=== PATIENT | female | born 1990 | race American Indian/Alaskan Native ===

== ENCOUNTER 2021-02-17 17:17 | Emergency (ER) | payer OTHER ==
--- NOTE | 2021-02-17 17:42 | EDM.PDOC ---
ED HPI GENERAL MEDICAL PROBLEM <Delmer Miller - Last Filed: 02/17/21 19:32> - General Source of Information: Reports: Patient History Limitations: Reports: No Limitations Abdominal Pain Score (Numeric/FACES): 9 <Tera Garcia - Last Filed: 02/18/21 06:37> - General Chief Complaint: CHIEF OF INTERNAL MEDICINE Problem Stated Complaint: HEAVY BLEEDING Time Seen by Provider: 02/17/21 17:19 - History of Present Illness INITIAL COMMENTS - FREE TEXT/NARRATIVE: Patient is a 30-year-old female who presents today for vaginal bleeding. Patient states that she took a test about 5 days ago that was positive her last period was 4 weeks ago. Patient states she has been having some heavy bleeding she has been using a tampon and has to change it out every 30 minutes. States she does not feel tired weak but does have some more abdominal cramping she is having some blood clots as well she denies any other complaints. (Tera Garcia) - Related Data Allergies Allergy/AdvReac Type Severity Reaction Status Date / Time No Known Allergies Allergy Verified 02/17/21 17:30 Home Meds: Home Meds . [No Known Home Meds] 02/17/21 [History] Past Medical History Cardiovascular History: Reports: Heart Murmur Gastrointestinal History: Reports: GERD CHIEF OF INTERNAL MEDICINE History: Reports: Polycystic Ovaries Psychiatric History: Reports: Anxiety, Depression - Past Surgical History Other Musculoskeletal Surgeries/Procedures:: ankle and leg surgery <Tera Garcia - Last Filed: 02/18/21 06:37> Social & Family History - Family History Family Medical History: No Pertinent Family History HEENT: Reports: Glaucoma Cardiac: Reports: Stent Respiratory: Reports: Asthma, Sleep Apnea GI: Reports: Diverticulitis : Reports: Renal Disease/Insufficiency OBGYN: Reports: Endometriosis, Fibroids, Musculoskeletal: Reports: Osteoporosis Neurological: Reports: Dementia Psychiatric: Reports: ADHD Endocrine/Metabolic: Reports: Osteoporosis Oncologic: Reports: Prostate - Caffeine Use Caffeine Use: Reports: Coffee, Soda, Tea <Tera Garcia - Last Filed: 02/18/21 06:37> ED ROS GENERAL - Review of Systems Review Of Systems: See Below Constitutional: Reports: No Symptoms HEENT: Reports: No Symptoms Respiratory: Reports: No Symptoms Cardiovascular: Reports: No Symptoms Endocrine: Reports: No Symptoms GI/Abdominal: Reports: No Symptoms : Reports: Irregular Menses Musculoskeletal: Reports: No Symptoms Skin: Reports: No Symptoms Neurological: Reports: No Symptoms Psychiatric: Reports: No Symptoms Hematologic/Lymphatic: Reports: No Symptoms Immunologic: Reports: No Symptoms <Tera Garcia - Last Filed: 02/18/21 06:37> ED EXAM - Physical Exam Exam: See Below Exam Limited By: No Limitations General Appearance: Alert, WD/WN, No Apparent Distress Head: Atraumatic Respiratory/Chest: No Respiratory Distress, Lungs Clear, Normal Breath Sounds Cardiovascular: Normal Peripheral Pulses, Regular Rate, Rhythm, No Edema GI/Abdominal Exam: Normal Bowel Sounds, Soft, Non-Tender Neurological: Alert, Oriented, Normal Cognition, Normal Gait <Tera Garcia - Last Filed: 02/18/21 06:37> Course <MillerDelmer - Last Filed: 02/17/21 19:32> - Vital Signs Last Recorded V/S: Last Vital Signs Temp 97.7 F 02/17/21 17:28 Pulse 80 02/17/21 19:36 Resp 18 02/17/21 19:36 BP 156/99 H 02/17/21 19:36 Pulse Ox 99 02/17/21 19:36 - Orders/Labs/Meds Labs: Laboratory Tests 02/17/21 02/17/21 02/17/21 Range/Units 17:27 17:42 17:42 WBC 10.96 (4.0-11.0) K/uL RBC 4.88 (4.30-5.90) M/uL Hgb 13.5 (12.0-16.0) g/dL Hct 40.1 (36.0-46.0) % MCV 82.2 (80.0-98.0) fL MCH 27.7 (27.0-32.0) pg MCHC 33.7 (31.0-37.0) g/dL RDW Std Deviation 44.3 (28.0-62.0) fl RDW Coeff of Kay 15 (11.0-15.0) % Plt Count 384 (150-400) K/uL MPV 9.20 (7.40-12.00) fL Neut % (Auto) 61.8 (48.0-80.0) % Lymph % (Auto) 29.9 (16.0-40.0) % Plumas % (Auto) 5.4 (0.0-15.0) % Eos % (Auto) 2.7 (0.0-7.0) % Baso % (Auto) 0.2 (0.0-1.5) % Neut # (Auto) 6.8 H (1.4-5.7) K/uL Lymph # (Auto) 3.3 H (0.6-2.4) K/uL Plumas # (Auto) 0.6 (0.0-0.8) K/uL Eos # (Auto) 0.3 (0.0-0.7) K/uL Baso # (Auto) 0.0 (0.0-0.1) K/uL Nucleated RBC % 0.0 /100WBC Nucleated RBCs # 0 K/uL INR 0.90 APTT 28.1 (18.6-31.3) SEC Sodium (136-145) mmol/L Potassium (3.5-5.1) mmol/L Chloride (98-107) mmol/L Carbon Dioxide (21.0-32.0) mmol/L BUN (7.0-18.0) mg/dL Creatinine (0.6-1.0) mg/dL Est Cr Clr Drug Dosing mL/min Estimated GFR (MDRD) ml/min Glucose (74-106) mg/dL Calcium (8.5-10.1) mg/dL Total Bilirubin (0.2-1.0) mg/dL AST (15-37) IU/L ALT (14-63) IU/L Alkaline Phosphatase (46-116) U/L Total Protein (6.4-8.2) g/dL Albumin (3.4-5.0) g/dL Globulin (2.6-4.0) g/dL Albumin/Globulin Ratio (0.9-1.6) HCG, Quant mIU/mL Urine Color YELLOW Urine Appearance SLT CLOUDY Urine pH 6.0 (5.0-8.0) Ur Specific Cornelius >= 1.030 (1.001-1.035) Urine Protein TRACE H (NEGATIVE) mg/dL Urine Glucose (UA) NEGATIVE (NEGATIVE) mg/dL Urine Ketones TRACE H (NEGATIVE) mg/dL Urine Occult Blood LARGE H (NEGATIVE) Urine Nitrite NEGATIVE (NEGATIVE) Urine Bilirubin NEGATIVE (NEGATIVE) Urine Urobilinogen 0.2 (<2.0) EU/dL Ur Leukocyte Esterase NEGATIVE (NEGATIVE) Urine RBC 35-40 (0-2/HPF) Urine WBC 0-2 (0-5/HPF) Ur Epithelial Cells FEW (NONE-FEW) Urine Bacteria RARE (NEGATIVE) Urine Mucus LIGHT (NONE-MOD) Blood Type 02/17/21 02/17/21 Range/Units 17:42 17:42 WBC (4.0-11.0) K/uL RBC (4.30-5.90) M/uL Hgb (12.0-16.0) g/dL Hct (36.0-46.0) % MCV (80.0-98.0) fL MCH (27.0-32.0) pg MCHC (31.0-37.0) g/dL RDW Std Deviation (28.0-62.0) fl RDW Coeff of Kay (11.0-15.0) % Plt Count (150-400) K/uL MPV (7.40-12.00) fL Neut % (Auto) (48.0-80.0) % Lymph % (Auto) (16.0-40.0) % Plumas % (Auto) (0.0-15.0) % Eos % (Auto) (0.0-7.0) % Baso % (Auto) (0.0-1.5) % Neut # (Auto) (1.4-5.7) K/uL Lymph # (Auto) (0.6-2.4) K/uL Plumas # (Auto) (0.0-0.8) K/uL Eos # (Auto) (0.0-0.7) K/uL Baso # (Auto) (0.0-0.1) K/uL Nucleated RBC % /100WBC Nucleated RBCs # K/uL INR APTT (18.6-31.3) SEC Sodium 140 (136-145) mmol/L Potassium 3.6 (3.5-5.1) mmol/L Chloride 106 (98-107) mmol/L Carbon Dioxide 21.8 (21.0-32.0) mmol/L BUN 13 (7.0-18.0) mg/dL Creatinine 0.7 (0.6-1.0) mg/dL Est Cr Clr Drug Dosing 102.40 mL/min Estimated GFR (MDRD) > 60.0 ml/min Glucose 101 (74-106) mg/dL Calcium 8.8 (8.5-10.1) mg/dL Total Bilirubin 0.4 (0.2-1.0) mg/dL AST 15 (15-37) IU/L ALT 25 (14-63) IU/L Alkaline Phosphatase 84 (46-116) U/L Total Protein 8.6 H (6.4-8.2) g/dL Albumin 3.5 (3.4-5.0) g/dL Globulin 5.1 H (2.6-4.0) g/dL Albumin/Globulin Ratio 0.7 L (0.9-1.6) HCG, Quant < 1.0 mIU/mL Urine Color Urine Appearance Urine pH (5.0-8.0) Ur Specific Cornelius (1.001-1.035) Urine Protein (NEGATIVE) mg/dL Urine Glucose (UA) (NEGATIVE) mg/dL Urine Ketones (NEGATIVE) mg/dL Urine Occult Blood (NEGATIVE) Urine Nitrite (NEGATIVE) Urine Bilirubin (NEGATIVE) Urine Urobilinogen (<2.0) EU/dL Ur Leukocyte Esterase (NEGATIVE) Urine RBC (0-2/HPF) Urine WBC (0-5/HPF) Ur Epithelial Cells (NONE-FEW) Urine Bacteria (NEGATIVE) Urine Mucus (NONE-MOD) Blood Type O POSITIVE Meds: Medications Discontinued Medications Generic Name Dose Route Start Last Admin Trade Name Gregor PRN Reason Stop Dose Admin Ketorolac Tromethamine 30 mg 02/17/21 18:57 02/17/21 19:12 Ketorolac 30 Mg/Ml Sdv IVPUSH 02/17/21 18:58 Not Given ONETIME ONE Ketorolac Tromethamine 30 mg 02/17/21 19:02 02/17/21 19:08 Ketorolac 30 Mg/Ml Sdv IM 02/17/21 19:03 30 mg ONETIME ONE Administration - Re-Assessments/Exams Free Text/Narrative Re-Assessment/Exam: 02/17/21 19:01 I accepted responsibility for this patient at the end of my partner's shift. Ultrasound pending and likely will be discharged to follow up with primary care or [facility]. 02/17/21 19:34 Ultrasound is negative. Ovaries not well seen. Vital signs stable. hCG negative. Blood type O+. Nothing further needs to be done at this point in patient's discharge. (Delmer Miller) Departure - Departure Time of Disposition: 19:32 Condition: Good <Delmer Miller - Last Filed: 02/17/21 19:32> <Tera Garcia - Last Filed: 02/18/21 06:37> - Departure Disposition: Home, Self-Care 01 Clinical Impression: Menorrhagia - Discharge Information Instructions: Menorrhagia Referrals: PCP,None [Primary Care Provider] - Forms: ED Department Discharge Additional Instructions: He may have had a very early miscarriage. Your test is now negative. Your blood type is O+ so nothing further needs to be done to protect future pregnancies. [facility] [address] [place] [address] [facility] [address] [place] [address] The following information is given to patients seen in the emergency department who are being discharged to home. This information is to outline your options for follow-up care. We provide all patients seen in our emergency department with a follow-up referral. The need for follow-up, as well as the timing and circumstances, are variable depending upon the specifics of your emergency department visit. If you don't have a primary care physician on staff, we will provide you with a referral. We always advise you to contact your personal physician following an emergency department visit to inform them of the circumstance of the visit and for follow-up with them and/or the need for any referrals to a consulting specialist. The emergency department will also refer you to a specialist when appropriate. This referral assures that you have the opportunity for follow-up care with a specialist. All of these measure are taken in an effort to provide you with opt imal care, which includes your follow-up. Under all circumstances we always encourage you to contact your private physician who remains a resource for coordinating your care. When calling for follow-up care, please make the office aware that this follow-up is from your recent emergency room visit. If for any reason you are refused follow-up, please contact the [facility] Emergency Department at and asked to speak to the emergency department charge nurse. Sepsis Event Note (ED) - Evaluation Sepsis Screening Result: No Definite Risk <Tera Garcia - Last Filed: 02/18/21 06:37> - Focused Exam Vital Signs: Vital Signs Pulse Resp BP Pulse Ox 02/17/21 19:36 80 18 156/99 H 99 <Tera Garcia - Last Filed: 02/18/21 06:37> - Assessment/Plan Plan: Patient is a 30-year-old female presents today for vaginal bleeding. Patient had a positive test a few days ago. Unclear if patient is now or how far along she is we will obtain urine test and ultrasound if positive and reassess. (Tera Garcia)
[2021-02-17 18:27] LABS: BLOOD UREA NITROGEN,BUN 13 mg/dL (7.0-18.0); CARBON DIOXIDE,CO2 21.8 mmol/L (21.0-32.0); CHLORIDE,CL 106 mmol/L (98-107); GLUCOSE RANDOM 101 mg/dL (74-106); POTASSIUM,K 3.6 mmol/L (3.5-5.1); SODIUM,NA 140 mmol/L (136-145)
[2021-02-17] MEDS ORDERED: Ketorolac 30 MG/ML SDV IVPUSH ONE (18:57)
[2021-02-17] MEDS ORDERED: Ketorolac 30 MG/ML SDV IM ONE (19:02)
--- NOTE | 2021-02-17 19:26 | US ---
INDICATION: , bleeding TECHNIQUE: Ultrasound pelvis transvaginal for better assessment or to better visualize the endometrium. Real-time sonographic images with spectral and color Doppler imaging of the ovaries were obtained. COMPARISON: None FINDINGS: The uterus is anteverted with endometrial thickness of 20 millimeters. Echotexture of the endometrial cavity is heterogeneous without a discrete gestational sac. Neither ovary seen. No adnexal mass no free fluid. IMPRESSION: Heterogeneous echotexture of the endometrial cavity without discrete gestational sac. This is considered a of uncertain location. Differential diagnosis includes normal early and miscarriage. Ectopic not excluded although none is seen on this exam. Correlation with serial quantitative beta HCG and follow-up ultrasound in 10-14 days suggested. Dictated by Dmitry Hernandez MD @ 02/17/2021 7:25:27 PM (Electronically Signed)
[2021-02-17 19:36] VITALS: BP 156/99; PULSE 80
== END 2021-02-17 19:40 | disposition home or self-care (01) ==
LOC: MW.ED 17:17
DX: N92.0 Excessive and frequent menstruation with regular cycle (principal)
CPT/HCPCS: 36415; 76817; 80053; 81001; 84702; 85025; 85610; 85730; 86900; 86901; 96372; 99284; J1885

== ENCOUNTER 2021-02-20 10:59 | Emergency (ER) | payer OTHER ==
--- NOTE | 2021-02-20 11:43 | EDM.PDOC ---
ED HPI GENERAL MEDICAL PROBLEM - General Chief Complaint: [employer]ONDARY [employer] UP [employer] Problem Stated Complaint: HEAVY BLEEDING Time Seen by Provider: 02/20/21 11:00 Source of Information: Reports: Patient History Limitations: Reports: No Limitations - History of Present Illness INITIAL COMMENTS - FREE TEXT/NARRATIVE: HISTORY AND PHYSICAL: History of present illness: Patient is a 30-year-old female who presents emergency room today with concern of heavy vaginal bleeding and lower abdominal cramping x4 days. Patient states that she was seen in the emergency room 3 days ago and states that she did have 1+ test on . She states that at that time, she was told that she is possibly miscarrying. Patient states she does have a history of PCOS and states that she does have irregular menstrual cycles at baseline. Patient states that she is having the same bleeding in the same cramping as 4 days ago and states that these have not worsened but have not improved. Patient states she has not taken anything for the symptoms and denies any other symptoms or concerns. Patient states that she is changing out a pad every 3 to 5 minutes and states that she is passing various amounts of clots since 4 days. Patient states that today is not heavier than 4 days ago and has been consistent. Patient states that she is on the Depo shot and does receive this routinely so is unsure how she was if she was . Patient denies fever, chills, chest pain, shortness of breath, or cough. Denies headache, neck stiff ness, change in vision, syncope, or near syncope. Denies nausea, vomiting, diarrhea, constipation, or dysuria. Has not noted any blood in urine or stool. Patient has been eating and drinking appropriately. Review of systems: As per history of present illness and below otherwise all systems reviewed and negative. Past medical history: As per history of present illness and as reviewed below otherwise noncontributory. Surgical history: As per history of present illness and as reviewed below otherwise noncontributory. Social history: See social history for further information Family history: As per history of present illness and as reviewed below otherwise noncontributory. Physical exam: General: Patient is alert, oriented, and in no acute distress. Patient sitting comfortably on exam table. Mildly tachycardic 105 on exam, otherwise vitally stable and reviewed by me. HEENT: Atraumatic, normocephalic, pupils equal and reactive bilaterally, negative for conjunctival pallor or scleral icterus, mucous membranes moist, throat clear, neck supple, nontender, trachea midline. No drooling or trismus noted. No meningeal signs. No hot potato voice noted. Lungs: Clear to auscultation, breath sounds equal bilaterally, chest nontender. Heart: S1S2, regular rate and rhythm without overt murmur Abdomen: Soft, nondistended, nontender. Negative for masses or hepatosplenomegaly. Negative for costovertebral tenderness. Pelvis: Stable nontender. Genitourinary: Loss Prevention Auditor at bedside Christiana Zuniga RN. External genitalia grossly unremarkable. There is a moderate amount of bright red vaginal bleeding noted from the cervical os with some mild uterine tenderness to palpation. No adnexal tenderness or masses. Negative cervical motion tenderness. Rectal: Deferred. Skin: Intact, warm, dry. No lesions or rashes noted. Extremities: Atraumatic, negative for cords or calf pain. Neurovascular unremarkable. Neuro: Awake, alert, oriented. Cranial nerves II through XII unremarkable. Cerebellum unremarkable. Motor and sensory unremarkable throughout. Exam nonfocal. Medical Decision Making: Patient is a 30-year-old female with a history of PCOS who presents emergency room today with concern of heavy vaginal bleeding and lower abdominal/menstrual cramping x4 days. Upon arrival to the ED, patient is mildly tachycardic 105 on exam, otherwise vitally stable. exam does show a moderate amount of bright red bleeding coming from the cervical os without clots. Cervix is nontender. Otherwise, exam is unremarkable. Will obtain basic lab work, hCG quant. On chart review from 02/17/2021, patient was seen in the ED at that time for heavy vaginal bleeding and lower abdominal menstrual/cramping with a positive test on . According to that visit, patient hCG quant was negative and patient did have a transvaginal ultrasound that did show a heterogeneous echotexture of the endometrial cavity without discrete gestational sac. This is considered a of uncertain location. Differential diagnosis includes normal early and miscarriage. Ectopic not excluded although none is seen at this exam. Correlate with serial hCG quant and follow-up ultrasound in 14 days recommended. Given patient's ultrasound, and continued pain/bleeding, will also repeat transvaginal ultrasound for comparison today. CBC shows that patient's hemoglobin and hematocrit has remained stable despite her stated heavy bleeding above. Patient's hemoglobin has improved from her visit on 02/17 and it is 14.4 today which has improved from 13.5 on 02/17. CMP does show an isolated elevation in BUN at 20, carbon dioxide 18.4 which is decreased, otherwise mild derangements of CMP unremarkable. hCG quant remains less than 1. Transvaginal ultrasound is unremarkable exam with no intrauterine gestational sac identified. The endometrial lining is within normal limits on today's exam. Repeat H&H remained stable and unchanged from initial CBC. Upon reevaluation of patient, her heart rate has normalized to 80 to 90s beats per minute without therapeutics today in the emergency room. Patient remains otherwise vitally stable and comfortable throughout stay in ED. I discussed with patient starting a an iron supplementation while still actively menstruating and discussed the importance for close follow-up with an SECONDARY [employer] UP MAN for/women's health care provider. Also discussed scheduling ibuprofen in order to help with discomfort as well as possibly decreased intrauterine bleeding. Strict return precautions thoroughly discussed with patient. Voices understanding and is agreeable to plan of care. Denies any further questions or concerns at this time. Diagnostics: CBC, CMP, UA, Serum hcg quant, transvaginal ultrasound, repeat H&H Therapeutics: Toradol Prescription: None Impression: Menorrhagia Plan: 1. I encourage you to take an iron supplement, 324 mg of ferrous sulfate tablet 3 times a day until resolution of bleeding. 2. I encourage you to schedule ibuprofen as directed and as discussed as this can help decrease intrauterine bleeding and can help with cramping and discomfort. 3. You can also use Tylenol as directed for pain and discomfort. 4. Follow-up with a women's health care/SE[employer] UP MAN provider as discussed. The phone numbers have been provided above for you to call and establish an appointment time. Return to the ED as needed and as discussed. Definitive disposition and diagnosis as appropriate pending reevaluation and review of above. Right Pelvic Pain Score (Numeric/FACES): 10 - Related Data Allergies Allergy/AdvReac Type Severity Reaction Status Date / Time No Known Allergies Allergy Verified 02/20/21 11:28 Home Meds: Home Meds . [No Known Home Meds] 02/17/21 [History] Past Medical History Cardiovascular History: Reports: Heart Murmur Gastrointestinal History: Reports: GERD [employer] UP MAN History: Reports: Polycystic Ovaries Psychiatric History: Reports: Anxiety, Depression - Past Surgical History Other Musculoskeletal Surgeries/Procedures:: ankle and leg surgery Social & Family History - Family History Family Medical History: No Pertinent Family History HEENT: Reports: Glaucoma Cardiac: Reports: Stent Respiratory: Reports: Asthma, Sleep Apnea GI: Reports: Diverticulitis : Reports: Renal Disease/Insufficiency OBGYN: Reports: Endometriosis, Fibroids, Musculoskeletal: Reports: Osteoporosis Neurological: Reports: Dementia Psychiatric: Reports: ADHD Endocrine/Metabolic: Reports: Osteoporosis Oncologic: Reports: Prostate - Caffeine Use Caffeine Use: Reports: None ED ROS GENERAL - Review of Systems Review Of Systems: Comprehensive ROS is negative, except as noted in HPI. ED EXAM, GENERAL - Physical Exam Exam: See Below (see dictation) Course - Vital Signs Last Recorded V/S: Last Vital Signs Temp 96.7 F L 02/20/21 11:29 Pulse 93 02/20/21 13:33 Resp 17 02/20/21 13:33 BP 166/77 H 02/20/21 13:33 Pulse Ox 98 02/20/21 13:33 - Orders/Labs/Meds Orders: Active Orders 24 hr Category Date Time Status UA RFX JOVANY AND CULT IF INDIC [URIN] Stat Lab 02/20/21 11:02 Ordered Labs: Laboratory Tests 02/20/21 02/20/21 02/20/21 Range/Units 11:32 11:32 11:32 WBC 7.94 (4.0-11.0) K/uL RBC 5.23 (4.30-5.90) M/uL Hgb 14.4 (12.0-16.0) g/dL Hct 43.3 (36.0-46.0) % MCV 82.8 (80.0-98.0) fL MCH 27.5 (27.0-32.0) pg MCHC 33.3 (31.0-37.0) g/dL RDW Std Deviation 45.3 (28.0-62.0) fl RDW Coeff of Kay 15 (11.0-15.0) % Plt Count 402 H (150-400) K/uL MPV 9.50 (7.40-12.00) fL Neut % (Auto) 60.6 (48.0-80.0) % Lymph % (Auto) 30.7 (16.0-40.0) % Duchesne % (Auto) 4.5 (0.0-15.0) % Eos % (Auto) 3.9 (0.0-7.0) % Baso % (Auto) 0.3 (0.0-1.5) % Neut # (Auto) 4.8 (1.4-5.7) K/uL Lymph # (Auto) 2.4 (0.6-2.4) K/uL Duchesne # (Auto) 0.4 (0.0-0.8) K/uL Eos # (Auto) 0.3 (0.0-0.7) K/uL Baso # (Auto) 0.0 (0.0-0.1) K/uL Nucleated RBC % 0.0 /100WBC Nucleated RBCs # 0 K/uL Sodium 140 (136-145) mmol/L Potassium 3.6 (3.5-5.1) mmol/L Chloride 106 (98-107) mmol/L Carbon Dioxide 18.4 L (21.0-32.0) mmol/L BUN 20 H (7.0-18.0) mg/dL Creatinine 1.0 (0.6-1.0) mg/dL Est Cr Clr Drug Dosing 71.68 mL/min Estimated GFR (MDRD) > 60.0 ml/min Glucose 101 (74-106) mg/dL Calcium 8.7 (8.5-10.1) mg/dL Total Bilirubin 0.8 (0.2-1.0) mg/dL AST 23 (15-37) IU/L ALT 35 (14-63) IU/L Alkaline Phosphatase 86 (46-116) U/L Total Protein 9.4 H (6.4-8.2) g/dL Albumin 3.8 (3.4-5.0) g/dL Globulin 5.6 H (2.6-4.0) g/dL Albumin/Globulin Ratio 0.7 L (0.9-1.6) Lipase 175 (73-393) U/L HCG, Quant < 1.0 mIU/mL 02/20/21 Range/Units 13:50 WBC (4.0-11.0) K/uL RBC (4.30-5.90) M/uL Hgb 14.2 (12.0-16.0) g/dL Hct 42.5 (36.0-46.0) % MCV (80.0-98.0) fL MCH (27.0-32.0) pg MCHC (31.0-37.0) g/dL RDW Std Deviation (28.0-62.0) fl RDW Coeff of Kay (11.0-15.0) % Plt Count (150-400) K/uL MPV (7.40-12.00) fL Neut % (Auto) (48.0-80.0) % Lymph % (Auto) (16.0-40.0) % Duchesne % (Auto) (0.0-15.0) % Eos % (Auto) (0.0-7.0) % Baso % (Auto) (0.0-1.5) % Neut # (Auto) (1.4-5.7) K/uL Lymph # (Auto) (0.6-2.4) K/uL Duchesne # (Auto) (0.0-0.8) K/uL Eos # (Auto) (0.0-0.7) K/uL Baso # (Auto) (0.0-0.1) K/uL Nucleated RBC % /100WBC Nucleated RBCs # K/uL Sodium (136-145) mmol/L Potassium (3.5-5.1) mmol/L Chloride (98-107) mmol/L Carbon Dioxide (21.0-32.0) mmol/L BUN (7.0-18.0) mg/dL Creatinine (0.6-1.0) mg/dL Est Cr Clr Drug Dosing mL/min Estimated GFR (MDRD) ml/min Glucose (74-106) mg/dL Calcium (8.5-10.1) mg/dL Total Bilirubin (0.2-1.0) mg/dL AST (15-37) IU/L ALT (14-63) IU/L Alkaline Phosphatase (46-116) U/L Total Protein (6.4-8.2) g/dL Albumin (3.4-5.0) g/dL Globulin (2.6-4.0) g/dL Albumin/Globulin Ratio (0.9-1.6) Lipase (73-393) U/L HCG, Quant mIU/mL Meds: Medications Discontinued Medications Generic Name Dose Route Start Last Admin Trade Name Gregor PRN Reason Stop Dose Admin Ketorolac Tromethamine 30 mg 02/20/21 12:10 02/20/21 13:26 Ketorolac 30 Mg/Ml Sdv IVPUSH 02/20/21 12:11 30 mg ONETIME ONE Administration Departure - Departure Time of Disposition: 14:10 Disposition: Home, Self-Care 01 Clinical Impression: Menorrhagia - Discharge Information [facility] - Forms: ED Department Discharge Additional Instructions: The following information is given to patients seen in the emergency department who are being discharged to home. This information is to outline your options for follow-up care. We provide all patients seen in our emergency department with a follow-up referral. The need for follow-up, as well as the timing and circumstances, are variable depending upon the specifics of your emergency department visit. If you don't have a primary care physician on staff, we will provide you with a referral. We always advise you to contact your personal physician following an emergency department visit to inform them of the circumstance of the visit and for follow-up with them and/or the need for any referrals to a consulting specialist. The emergency department will also refer you to a specialist when appropriate. This referral assures that you have the opportunity for follow-up care with a specialist. All of these measure are taken in an effort to provide you with optimal care, which includes your follow-up. Under all circumstances we always encourage you to contact your private physician who remains a resource for coordinating your care. When calling for follow-up care, please make the office aware that this follow-up is from your recent emergency room visit. If for any reason you are refused follow-up, please contact the [facility] Emergency Department at and asked to speak to the emergency department charge nurse. [facility] [address] [place] [address] [facility] [address] [place] [address] 1. I encourage you to take an iron supplement, 324 mg of ferrous sulfate tablet 3 times a day until resolution of bleeding. 2. I encourage you to schedule ibuprofen as directed and as discussed as this can help decrease intrauterine bleeding and can help with cramping and discom fort. 3. You can also use Tylenol as directed for pain and discomfort. 4. Follow-up with a women's health care/[employer] provider as discussed. The phone numbers have been provided above for you to call and establish an appointment time. Return to the ED as needed and as discussed. Sepsis Event Note (ED) - Evaluation Sepsis Screening Result: No Definite Risk - Focused Exam Vital Signs: Vital Signs Temp Pulse Resp BP Pulse Ox 02/20/21 13:33 93 17 166/77 H 98 02/20/21 11:29 96.7 F L 105 H 16 168/106 H 96 - My Orders Last 24 Hours: My Active Orders 02/20/21 11:02 UA RFX JOVANY AND CULT IF INDIC [URIN] Stat - Assessment/Plan Last 24 Hours: My Active Orders 02/20/21 11:02 UA RFX JOVANY AND CULT IF INDIC [URIN] Stat
[2021-02-20] MEDS ORDERED: Ketorolac 30 MG/ML SDV IVPUSH ONE (12:10)
[2021-02-20 12:11] LABS: BLOOD UREA NITROGEN,BUN 20 mg/dL (7.0-18.0); CARBON DIOXIDE,CO2 18.4 mmol/L (21.0-32.0); CHLORIDE,CL 106 mmol/L (98-107); GLUCOSE RANDOM 101 mg/dL (74-106); POTASSIUM,K 3.6 mmol/L (3.5-5.1); SODIUM,NA 140 mmol/L (136-145)
--- NOTE | 2021-02-20 13:48 | US ---
INDICATION: Bleeding and clots, cramping. History of irregular cycles. HCG quant less than 1.0. COMPARISON: Pelvic ultrasound 02/17/2021 TECHNIQUE: 2D schroeder scale and color Doppler images were acquired of the pelvis using a transvaginal approach. FINDINGS: Sonographic images demonstrate a normal size and smooth outer contour of the uterus. The uterus is anteverted and retroflexed in position. The uterus measures 9.2 cm in length by 3.9 cm in AP diameter by 4.0 cm in transverse dimension. The myometrium has a normal uniform echotexture. The endometrial lining has decreased in thickness and appears more homogeneous on today`s exam, measuring 11 mm in composite thickness. No intrauterine gestational sac identified. The right ovary measures 1.7 x 1.7 x 2.5 cm in size and the left ovary measures 1.7 x 2.6 x 1.9 cm. The ovaries demonstrate normal arterial and venous blood flow on color Doppler analysis. No free fluid in the cul-de-sac. IMPRESSION: 1. Unremarkable exam. No intrauterine gestational sac identified. 2. The endometrial lining is within normal limits on today`s exam. Dictated by Rosalind Castillo MD @ 02/20/2021 1:47:53 PM (Electronically Signed)
[2021-02-20 14:28] VITALS: BP 155/94; PULSE 97
== END 2021-02-20 14:28 | disposition home or self-care (01) ==
LOC: MW.ED 10:59
DX: N92.0 Excessive and frequent menstruation with regular cycle (principal)
CPT/HCPCS: 36415; 76830; 80053; 83690; 84702; 85014; 85018; 85025; 96374; 99284; J1885

== ENCOUNTER 2023-03-25 21:08 | Emergency (ER) | payer MEDICAID ==
[2023-03-25] MEDS ORDERED: Sodium Chloride 0.9% 10 ML Syringe FLUSH PRN (21:15)
[2023-03-25] MEDS ORDERED: Sodium Chloride 0.9% 1,000 ML IV ONE (21:15)
[2023-03-25] MEDS ORDERED: Sodium Chloride 0.9% 2.5 ML Syringe FLUSH PRN (21:15)
[2023-03-25 21:54] LABS: BASOPHILS ABSOLUTE AUTO 0.03 K/uL (0.00-0.20); BASOPHILS PERCENT AUTO 0.4 % (0.0-1.0); EOSINOPHILS ABSOLUTE AUTO 0.24 K/uL (0.00-0.45); EOSINOPHILS PERCENT AUTO 2.9 % (0.0-6.0); HEMATOCRIT 42.1 % (37.0-47.0); HEMOGLOBIN 13.8 g/dL (12.0-16.0); IMMATURE GRAN ABSOLUTE AUTO 0.01 K/uL (0.00-0.05); IMMATURE GRAN PERCENT AUTO 0.1 % (0.0-0.4); LYMPHOCYTES ABSOLUTE AUTO 2.34 K/uL (1.00-4.80); LYMPHOCYTES PERCENT AUTO 28.7 % (24.0-44.0); MEAN CORPUSCULAR HEMOGLOBIN 26.8 pg (28.0-32.0); MEAN CORPUSCULAR HGB CONC 32.8 g/dL (32.0-36.0); MEAN CORPUSCULAR VOLUME 81.7 fL (83.0-99.0); MEAN PLATELET VOLUME 8.8 fL (9.4-12.3); MONOCYTES ABSOLUTE AUTO 0.54 K/uL (0.00-0.80); MONOCYTES PERCENT AUTO 6.6 % (0.0-8.0); NEUTROPHILS ABSOLUTE AUTO 4.98 K/uL (1.80-7.70); NEUTROPHILS PERCENT AUTO 61.3 % (41.0-71.0); PLATELET COUNT,PLT 403 K/uL (150-400); RED BLOOD CELL COUNT 5.15 M/uL (4.10-5.30); WHITE BLOOD CELL COUNT,WBC 8.14 K/uL (3.9-11.3)
[2023-03-25 22:25] LABS: A/G RATIO 0.8 (0.9-1.6); ALANINE AMINOTRANSFERASE,ALT 42 IU/L (14-63); ALBUMIN 3.7 g/dL (3.4-5.0); ALKALINE PHOSPHATASE 84 U/L (46-116); ASPARTATE AMNIOTRANSFERASE,AST 23 IU/L (15-37); BILIRUBIN TOTAL 0.6 mg/dL (0.2-1.0); BLOOD UREA NITROGEN,BUN 16 mg/dL (7.0-18.0); CALCIUM 8.7 mg/dL (8.5-10.1); CARBON DIOXIDE,CO2 26.9 mmol/L (21.0-32.0); CHLORIDE,CL 104 mmol/L (98-107); CREATININE 0.9 mg/dL (0.6-1.0); EST CRCL DRUG DOSING (CG) 74.92 mL/min; ESTIMATED GFR 88 mL/min (>60); GLUCOSE RANDOM 102 mg/dL (74-106); HCG QUANTITATIVE < 1.0 mIU/mL; POTASSIUM,K 3.7 mmol/L (3.5-5.1); PROTEIN TOTAL,TP 8.1 g/dL (6.4-8.2); SODIUM,NA 141 mmol/L (136-145)
[2023-03-25 22:58] VITALS: BP 172/85; PULSE 73
== END 2023-03-25 22:58 | disposition home or self-care (01) ==
LOC: MW.ED 21:08
DX: O03.9 Complete or unspecified spontaneous abortion without complication (principal)
CPT/HCPCS: 36415; 76817; 80053; 84702; 84703; 85025; 86900; 86901; 96360; 99284; J3490; J7030

== ENCOUNTER 2023-07-08 19:35 | Emergency (ER) | payer MEDICAID ==
[2023-07-08 23:19] VITALS: BP 140/90; PULSE 72
== END 2023-07-08 23:17 | disposition home or self-care (01) ==
LOC: MW.ED 19:35
DX: B37.0 Candidal stomatitis (principal); I10 Essential (primary) hypertension; Z75.8 Other problems related to medical facilities and other health care; Z79.899 Other long term (current) drug therapy
CPT/HCPCS: 99283

== ENCOUNTER 2024-04-03 15:47 | Emergency (ER) | payer SELFPAY ==
[2024-04-03 17:04] VITALS: BP 189/90
[2024-04-03 18:42] VITALS: PULSE 75
== END 2024-04-03 18:44 | disposition home or self-care (01) ==
LOC: MW.ED 15:47
DX: M25.561 Pain in right knee (principal); I10 Essential (primary) hypertension; Z90.89 Acquired absence of other organs; Z75.8 Other problems related to medical facilities and other health care
CPT/HCPCS: 73562-26-RT; 73562-RT; 99283

== ENCOUNTER 2024-06-04 07:54 | Emergency (ER) | payer SELFPAY ==
[2024-06-04 08:04] VITALS: BP 152/72; PULSE 90
== END 2024-06-04 09:02 | disposition home or self-care (01) ==
LOC: MW.ED 07:54
DX: S63.501A Unspecified sprain of right wrist, initial encounter (principal); I10 Essential (primary) hypertension; Z79.899 Other long term (current) drug therapy; W18.39XA Other fall on same level, initial encounter; Y93.89 Activity, other specified
CPT/HCPCS: 73030-26-RT; 73030-RT; 73110-26-RT; 73110-RT; 73130-26-RT; 73130-RT; 99283